=== PATIENT | female | born 1985 | race Two or more races ===

== ENCOUNTER 2017-08-20 16:39 | Emergency (ER) | payer OTHER ==
[~2017-08-20] VITALS: Ht 175.3 cm; Wt 65.8 kg
[2017-08-20 17:29] VITALS: BP 112/71
[2017-08-20 17:44] LABS: Urine Bacteria FEW /hpf (None Seen); Urine Blood TRACE /uL (Negative); Urine Mucus FEW (None Seen); Urine Specific Gravity 1.024 (1.001-1.035); Urine WBC 273 /hpf (0 - 5)
[2017-08-20 17:44] LABS: Urine Pregnacy Test Positive (Negative)
[2017-08-20] MEDS ORDERED: KETOROLAC TROMETH 60MG/2ML VIAL IM ONE (17:45)
[2017-08-20 17:56] LABS: Alcohol, Urine < 3.0 mg/dL (0-5); Amphetamine Screen, Urine POSITIVE (NEGATIVE); Barbiturate Scree,Urine NEGATIVE (NEGATIVE); Benzodiazephine Screen, Urine NEGATIVE (NEGATIVE); Cannabinoid Screen, Urine NEGATIVE (NEGATIVE); Cocaine Screen, Urine NEGATIVE (NEGATIVE); Opiate Scree,Urine NEGATIVE (NEGATIVE); Phencyclidine Screen, Urine NEGATIVE (NEGATIVE)
[2017-08-20] MEDS ORDERED: cefTRIAXone SOD 1,000 MG VL IM ONE (18:00)
[2017-08-20] MEDS ORDERED: ACETAMINOPHEN 500 MG TAB PO ONE (18:00)
== END 2017-08-20 18:26 | disposition home or self-care (01) ==
LOC: ER 16:44
DX: N39.0 Urinary tract infection, site not specified (principal); F15.10 Other stimulant abuse, uncomplicated; Z32.01 Encounter for pregnancy test, result positive
CPT/HCPCS: 80307; 81001; 81025; 96372; 99284; J0696